=== PATIENT | female | born 1990 | race Caucasian/White ===

== ENCOUNTER → 2018-02-23 17:51 | Outpatient (CLI) | payer MEDICAID ==
[2018-02-23 19:37] LABS: T4 THYROXIN - FREE 1.17 ng/dL (0.76-1.46); THYROID STIMULATING HORMONE 0.97 uIU/mL (0.36-3.74)
== END | disposition home or self-care (01) ==
LOC: D.LAB 17:51
PROVIDERS: Internal Medicine Interventional Cardiology
DX: R00.2 Palpitations (principal)

== ENCOUNTER 2018-03-22 20:42 | Emergency (ER) | payer MEDICAID ==
[~2018-03-22] VITALS: Ht 160 cm; Wt 109.1 kg
[2018-03-22 21:22] VITALS: Ht 160 cm; Wt 109.1 kg
[2018-03-22] MEDS ORDERED: ZOLOFT50 MG PO (21:24)
[2018-03-22] MEDS ORDERED: MOBIC7.5 MG PO (21:24)
[2018-03-22] MEDS ORDERED: PROPRANOLOL HCL60 M1 PO (21:24)
[2018-03-23] MEDS ORDERED: TYLENOL W/CODEI1 TAB PO (00:45)
[2018-03-23] MEDS ORDERED: BACTRIM DS TABL1 TAB PO (00:45)
[2018-03-23] MEDS ORDERED: ROBAXIN-750750 MG PO (00:45)
[2018-03-23 00:59] VITALS: BP 123/84
== END 2018-03-23 00:59 | disposition home or self-care (01) ==
LOC: D.ER 20:42
DX: T14.8XXA Other injury of unspecified body region, initial encounter (principal); V87.8XXA Person injured in other specified noncollision transport accidents involving motor vehicle (traffic), initial encounter; Y93.89 Activity, other specified; Y92.89 Other specified places as the place of occurrence of the external cause

== ENCOUNTER 2018-10-20 21:10 | Emergency (ER) | payer SELFPAY ==
[~2018-10-20] VITALS: Ht 160 cm; Wt 106.8 kg
[~2018-10-20 21:10] MED LIST: BACTRIM DS TABL1 TAB PO; MOBIC7.5 MG PO; PROPRANOLOL HCL60 M1 PO; ROBAXIN-750750 MG PO; TYLENOL W/CODEI1 TAB PO; ZOLOFT50 MG PO
[2018-10-20 22:05] VITALS: Ht 160 cm; Wt 106.8 kg
[2018-10-20 22:43] LABS: BASOPHILS 0.5 % (0-2); EOSINOPHILS 3.7 % (0-7); HEMATOCRIT 37.8 % (36.0-48.0); HEMOGLOBIN 12.3 g/dL (12-16); IMMATURE GRANULOCYTES 0.1 % (0-5); LYMPHOCYTES 43.8 % (15-50); MCH 27.2 pg (26.0-34.0); MCHC 32.5 g/dL (31.0-37.0); MCV 83.6 fL (80.0-100.0); MEAN PLATELET VOLUME 9.9 fL (7.4-10.4); MONOCYTES 5.4 % (2-11); NEUTROPHILS 46.5 % (40-80); PLATELET COUNT 261 10x3/uL (130-400); RBC 4.52 10x6/uL (4.00-5.40); RDW 12.9 % (11.5-14.5); WBC 9.1 10x3/uL (4.8-10.8)
[2018-10-20 22:51] LABS: ALBUMIN 3.5 g/dL (3.4-5.0); ALKALINE PHOSPHATASE 46 U/L (46-116); ALT (SGPT) 21 U/L (10-68); BILIRUBIN - TOTAL 0.13 mg/dL (0.2-1.3); CALC OSMOLALITY 277 mosm/kg (275-300); CALCIUM 8.8 mg/dL (8.5-10.1); CARBON DIOXIDE 26.9 mmol/L (21.0-32.0); CHLORIDE - SERUM 106 mmol/L (98-107); CREATININE - SERUM 0.7 mg/dL (0.6-1.3); GLUCOSE 94 mg/dL (74-106); POTASSIUM - SERUM 3.6 mmol/L (3.5-5.1); PROTEIN - SERUM 7.1 g/dL (6.4-8.2); SODIUM 139 mmol/L (136-145); UREA NITROGEN 12 mg/dL (7-18); eGFR NON AFRICAN AMERICAN > 90 mL/min (90-120)
[2018-10-20] MEDS ORDERED: TYLENOL #4 W/CO1 TAB PO (23:03)
[2018-10-21] VITALS: BP 131/78
== END 2018-10-21 00:02 | disposition home or self-care (01) ==
LOC: D.ER 21:10
PROVIDERS: Family Medicine
DX: M79.18 Myalgia, other site (principal); V49.9XXA Car occupant (driver) (passenger) injured in unspecified traffic accident, initial encounter; Y93.89 Activity, other specified; Y92.410 Unspecified street and highway as the place of occurrence of the external cause; I10 Essential (primary) hypertension